=== PATIENT | female | born 1950 | race Caucasian/White ===

== ENCOUNTER 2017-06-18 08:23 | Emergency (ER) | payer OTHER ==
[~2017-06-18] VITALS: Ht 160 cm; Wt 141.0 kg
[~2017-06-18 08:23] MED LIST: ADVAIR DISK1 INH; ALBUTEROL1 NEB; ALBUTEROL2.5 MG/31 IN; AMOX/K CLAV875 M1 PO; AMOXICILLIN500 MG PO; ASPIRIN LOW DOS81 M2 PO; AVELOX400 MG PO; BL ADULT ASA81 MG PO; BUMETANIDE1 MG PO; CITALOPRAM20 MG PO; COMBIVENT INH; COREG6.25 MG PO; CRESTOR40 MG PO; KLOR-CON 1010 ME1 PO; LASIX 20 MG TAB20 MG PO; LORTAB 5-325 MG1 TAB PO; MAXZIDE-2537.5 MG/TA PO; MEDDOSEPAK PO; MOTRIN800 MG PO; NEBULIZE2 NEB; PRAVACHOL40 MG PO; PREDNISONE1 MG PO; TESSALON PER100 MG PO; ZITHROMAX250 MG PO; ZOLOFT50 MG PO
[2017-06-18] MEDS ORDERED: DELTASONE20 MG PO (08:33)
[2017-06-18 09:09] VITALS: BP 148/77
[2017-06-21] MEDS ORDERED: PREDNISONE50 MG PO (14:29)
== END 2017-06-18 09:09 | disposition home or self-care (01) | DRG 203 ==
LOC: ED 08:23
DX: J98.01 Acute bronchospasm (principal); Z99.81 Dependence on supplemental oxygen; J44.9 Chronic obstructive pulmonary disease, unspecified; I10 Essential (primary) hypertension; E78.5 Hyperlipidemia, unspecified

== ENCOUNTER 2019-03-06 02:53 | Observation (INO) | payer MEDICARE, OTHER ==
[~2019-03-06] VITALS: Ht 160 cm; Wt 149.7 kg
[~2019-03-06 02:53] MED LIST changes: +DELTASONE20 MG PO; +PREDNISONE50 MG PO
--- NOTE | 2019-03-06 02:58 | NUR ---
PT AMBULATORY TO ROOM # 9 FOR BEDSIDE TRIAGE.
[2019-03-06] MEDS ORDERED: BUMETANIDE1 MG PO (03:49)
[2019-03-06] MEDS ORDERED: DUONEB IN (03:50)
[2019-03-06 03:56] LABS: HEMATOCRIT 43.4 % (37.0-47.0); HEMOGLOBIN 14.1 g/dl (12.0-16.0); IMMATURE GRANULOCYTES 0.4 % (0.0-5.0); MEAN CELL VOLUME 99.1 fL CALC (80.0-100.0); MEAN CORPUSCULAR HGB 32.2 pG CALC (26.0-32.0); MEAN CORPUSCULAR HGB CONC 32.5 g/L CALC (32.0-36.0); NEUT# 2.77 thou/uL (2.00-7.15); RED BLOOD COUNT 4.38 mill/uL (4.20-5.60); RED CELL DISTRI WIDTH 11.6 % (11.5-15.5)
[2019-03-06 03:57] LABS: URINE BILIRUBIN - DIPSTICK NEGATIVE (NEGATIVE); URINE BLOOD DIPSTICK TRACE-INTACT (NEGATIVE); URINE COLOR YELLOW; URINE GLUCOSE - DIPSTICK NEGATIVE (NEGATIVE); URINE KETONE NEGATIVE (NEGATIVE); URINE LEUK ESTERASE NEGATIVE (NEGATIVE); URINE NITRITE - DIPSTICK NEGATIVE (Negative); URINE PROTEIN - DIPSTICK NEGATIVE (NEG-TRACE); URINE SPECIFIC GRAVITY 1.015; URINE UROBILINOGEN - DIPSTICK 0.2 E.U./dL (0.2)
[2019-03-06 04:12] LABS: ALKALINE PHOSPHATASE 98 u/l (38-126); ANION GAP 14 (6-22 (CALC)); BUN 17 mg/dL (8-23); BUN/CREATININE RATIO 28 (12-20 (CALC)); CARBON DIOXIDE 31 mmol/l (22-30); CHLORIDE 100 mmol/l (95-108); CREATININE 0.6 mg/dL (0.5-1.0); GFR > 60 ML/MIN (>=60 (CALC)); GFR FOR AFR.AMER. > 60 ML/MIN (>=60 (CALC)); LIPASE 156 u/l (23-300); POTASSIUM 4.4 mmol/l (3.5-5.1); SGOT/AST 44 u/l (9-36); SODIUM 140 mmol/l (137-146); TOTAL PROTEIN 7.4 g/dL (6.3-8.2)
--- NOTE | 2019-03-06 04:18 | NUR ---
NO RELIEF WITH TORADOL.
[2019-03-06 04:24] LABS: ALBUMIN 4.6 g/dL (3.2-5.0); BILIRUBIN, TOTAL 0.5 mg/dL (0.0-1.4); MYOGLOBIN 30 ng/mL (0 - 62)
--- NOTE | 2019-03-06 05:00 | NUR ---
RESTING QUIETLY AWAITING ROOM ASSIGNMENT.
--- NOTE | 2019-03-06 05:40 | NUR ---
Admission Note Report Given to: ERICKA RAMIREZ Transported by: Wheelchair X Stretcher Transported with: X Nurse Transporter X Patent IV X O2 X Non Categorical Preschool Teacher
--- NOTE | 2019-03-06 05:50 | NUR ---
PT. ARRIVED TO THE FLOOR VIA STRETCHER ACCOMPANIED BY ER NURSE. ADMISSION ASSESSMENT COMPLETED. IV SITE PATENT AND SL TO RAC. TELEMETRY IN PLACE. EDCUATED GUM ROLLING MACHINE OPERATOR LIGHT, ROOM, AND POC; PT. VERBALIZES UNDERSTANDING. PT. DECLINES SOCKS AND/OR CAT HOSE TO BE PLACED. O2 INFUSING PER NC @2LITERS/MIN PER NC. PT. DOES HAVE EXERTIONAL SOB NOTED. SPO2 96% AT THIS TIME. PT. REPORTS PAIN TO LEFT SHOULDER RADIATES DOWN LEFT ARM 3/10 NOW IT IS DOWN POST MORPHINE ADMINISTRATION IN ER. THIS IS NO CHANGE FROM INITIAL COMPLAINTS. DENIES CP. INSTRUCTED TO CALL FOR ANY NEEDS. CALL LIGHT IS IN REACH. WILL CONTINUE TO MONITOR.
[2019-03-06 05:53] VITALS: BP 155/90
--- NOTE | 2019-03-06 07:21 | NUR ---
REPORT RECEIVED FROM ERICKA RAMIREZ. P0T SITTING UPRIGHT IN BED. O2 @ 2L VIA NC. PT REPORTS RELIEF OF PAIN SINCE MEDICATION ADMINISTERED IN ED. REPORTING OF CONCERNS ENCOURAGED. PLAN OF CARE DISCUSSED. CALL LIGHT REVIEWED AND IN REACH. PT STATES UNDERSTANDING.
[2019-03-06 07:50] VITALS: BP 171/90
--- NOTE | 2019-03-06 13:32 | NUR ---
DR. COATES IN TO SEE PT. PLAN OF CARE UPDATED.
[2019-03-06 16:36] VITALS: BP 113/64
--- NOTE | 2019-03-06 16:56 | NUR ---
K-PAD PROVIDED FOR PAIN TO LEFT SHOULDER PER DR. COATES.
--- NOTE | 2019-03-06 19:57 | NUR ---
PT. SITTING UP IN BED AND ASSESSMENT COMPLETED. IV SITE PATENT AND SL, MEDICATED WITH ORDERED PRN MORPHINE AND FLUSHED WITH NS FOR C/O LEFT SHOULDER PAIN 07/17. PT. REPORTS TRAMADOL DID NOT LOWER PAIN THAT WAS GIVEN AT 1800. KPAD IN PLACE WELL TO LEFT SHOULDER. UPDATED ON POC. ENCOURAGED TO CALL FOR ANY NEEDS. CALL LIGHT IS IN REACH. WILL CONTINUE TO MONITOR.
[2019-03-06 20:30] VITALS: BP 131/71
--- NOTE | 2019-03-06 20:37 | NUR ---
SCHED MEDICATIONS GIVEN AND KPAD REMOVED FROM LEFT SHOULDER PER PT'S REQUEST. INSTRUCTED TO CALL FOR ANY NEEDS. CALL LIGHT IS IN REACH.
--- NOTE | 2019-03-06 22:15 | NUR ---
PT. RESTING IN BED ON RIGHT SIDE WITH EYES CLOSED. CPAP IN PLACE. NO DISTRESS NOTED; WILL CONTINUE TO MONITOR. CALL LIGHT IS IN REACH.
[2019-03-06 23:11] VITALS: BP 109/62
--- NOTE | 2019-03-06 23:11 | NUR ---
PT. REPORTS SHE IS FEELING A LITTLE DIZZY, THIS SEMICONDUCTOR TECHNICIAN AMBULATED WITH PT FOR STBY ASST. TO THE BATHROOM AND PT. VOIDED 200MLS OF DARK CLEAR URINE. VSS. NO DISTRESS NOTED. CPAP REAPPLIED. CALL LIGHT IS IN REACH.
--- NOTE | 2019-03-07 00:06 | NUR ---
PT. C/O LEFT SHOULDER PAIN 03/17, MEDICATED WITH ORDERED PRN MORPHINE PER ORDER. OFFERED PRN ULTRAM OR MORPHINE AND PT. REQUESTED MORPHINE AND REPORTS ULTRAM IS NOT STRONG ENOUGH. ADVISED PT. TO SPEAK WITH MD UP[facility]OUNDS TOMORROW TO DISCUSS DIFFERENT ORAL PAIN MEDICATION OPTIONS. VERBALIZES UNDERSTANDING. APPLIED K-PAD BACK TO LEFT SHOULDER. ENCOURAGED TO CALL FOR ANY NEEDS. CALL LIGHT IS IN REACH. WILL CONTINUE TO MONITOR.
--- NOTE | 2019-03-07 02:52 | NUR ---
PT. RESTING IN BED WITH NO DISTRESS NOTED. DENIES NEEDS. CALL LIGHT IS IN REACH.
--- NOTE | 2019-03-07 04:44 | NUR ---
PT. AWAKENED FOR AM VS. VSS. NO DISTRESS NOTED. REPORTS PAIN TO LEFT SHOULDER 5/10, MEDICATED WITH ORDERED TRAMADOL; WILL REASSESS. DAILY WT OBTAINED. DENIES FURTHER NEEDS. CALL LIGHT IS IN REACH.
[2019-03-07 04:45] VITALS: BP 115/56
[2019-03-07 05:09] LABS: HEMATOCRIT 40.7 % (37.0-47.0); HEMOGLOBIN 13.1 g/dl (12.0-16.0); IMMATURE GRANULOCYTES 0.2 % (0.0-5.0); MEAN CELL VOLUME 101.5 fL CALC (80.0-100.0); MEAN CORPUSCULAR HGB 32.7 pG CALC (26.0-32.0); MEAN CORPUSCULAR HGB CONC 32.2 g/L CALC (32.0-36.0); NEUT# 2.32 thou/uL (2.00-7.15); RED BLOOD COUNT 4.01 mill/uL (4.20-5.60); RED CELL DISTRI WIDTH 11.7 % (11.5-15.5)
[2019-03-07 05:38] LABS: ALBUMIN 3.9 g/dL (3.2-5.0); ALKALINE PHOSPHATASE 72 u/l (38-126); ANION GAP 13 (6-22 (CALC)); BILIRUBIN, TOTAL 0.5 mg/dL (0.0-1.4); BUN 17 mg/dL (8-23); BUN/CREATININE RATIO 28 (12-20 (CALC)); CARBON DIOXIDE 32 mmol/l (22-30); CHLORIDE 97 mmol/l (95-108); CREATININE 0.6 mg/dL (0.5-1.0); GFR > 60 ML/MIN (>=60 (CALC)); GFR FOR AFR.AMER. > 60 ML/MIN (>=60 (CALC)); MAGNESIUM 1.8 mg/dL (1.6-2.3); SGOT/AST 38 u/l (9-36); SODIUM 137 mmol/l (137-146); TOTAL PROTEIN 6.3 g/dL (6.3-8.2)
--- NOTE | 2019-03-07 07:00 | NUR ---
PT REPORT EIRCKA RAMIREZ. PT IN RESTROOM. NO S/S OF DISTRESS. CALL LIGHT IN REACH. WILL CONTINUE TO MONITOR.
[2019-03-07 07:56] VITALS: BP 114/51
--- NOTE | 2019-03-07 07:56 | NUR ---
PT A/O X3. SPEECH IS CLEAR. NONPRODUCTIVE COUGH NOTED. RESP LABORED. EXERTIONAL SOB. LUNG SOUNDS DIMINISHED. TELE IN PLACE. O2 @3L ON PT. BOWEL SOUNDS ACTIVE X4. STRONG RADIAL, WEAK PEDAL PULSES. #20 RAC SL. FLUSHED AND PATENT. SITE APPEARS HEALTHY. TRACE OF EDEMA NOTED TO BLE. PT C/O LT SHOULDER ACHING PAIN. 7 OUT OF 10 ON PAIN SCALE. MEDICATED W/ 2 MG MORPHINE. REPOSITIONED FOR COMFORT. PT DENIES ANY FURTHER NEEDS. POC DISCUSSED. SAFETY PRECAUTIONS IN PLACE. CALL LIGHT IN REACH. WILL CONTINUE TO MONITOR.
[2019-03-07 09:21] VITALS: BP 148/72
[2019-03-07 11:05] VITALS: BP 122/68
--- NOTE | 2019-03-07 12:00 | NUR ---
PT WATCHING TELEVISION. NO C/O PAIN OR NEEDS. TELE IN PLACE. CALL LIGHT IN REACH. WILL CONTINUE TO MONITOR.
[2019-03-07] MEDS ORDERED: LORTAB5 PO (14:14)
--- NOTE | 2019-03-07 16:55 | NUR ---
D/C INSTRUCTIONS DISCUSSED W/ PT. PT STATES UNDERSTANDING. IV REMOVED. CATHETER INTACT. PT AWAITING RIDE HOME.
--- NOTE | 2019-03-07 17:11 | NUR ---
Discharge instructions given. Patient verbalizes understanding of same. Discharged in stable condition via Wheelchair to Home with family. All belongings sent with pt.
== END 2019-03-07 17:09 | disposition home or self-care (01) ==
LOC: ED 02:53 → ED-I 04:40 → ED 05:13 → MS2 05:14
PROVIDERS: Emergency Medicine; Internal Medicine Nephrology; ADMIT Internal Medicine; ATTEND Internal Medicine
DX: R07.9 Chest pain, unspecified (principal); M79.622 Pain in left upper arm; E66.9 Obesity, unspecified; Z68.43 Body mass index [BMI] 50.0-59.9, adult; I10 Essential (primary) hypertension; J44.9 Chronic obstructive pulmonary disease, unspecified; F32.9 Major depressive disorder, single episode, unspecified; E78.5 Hyperlipidemia, unspecified; G47.33 Obstructive sleep apnea (adult) (pediatric); Z99.81 Dependence on supplemental oxygen

== ENCOUNTER 2022-07-08 15:31 | Emergency (ER) | payer MEDICARE, OTHER ==
[~2022-07-08 15:31] MED LIST changes: +DUONEB IN; +LORTAB5 PO
== END 2022-07-08 15:35 | disposition left against medical advice (07) ==
LOC: ED 15:31 → LWOBS 15:35
DX: Z53.21 Procedure and treatment not carried out due to patient leaving prior to being seen by health care provider (principal)

== ENCOUNTER 2023-03-08 13:44 | Emergency (ER) | payer MEDICARE, MEDICAID, OTHER ==
[~2023-03-08] VITALS: Ht 160 cm; Wt 144.6 kg
[2023-03-08] VITALS (8 sets, daily range): BP systolic 75–166; BP diastolic 55–95
[2023-03-08] MEDS ORDERED: VOLTAREN1%GEL TOP (14:57)
[2023-03-08] MEDS ORDERED: TRAMADOL HYDROC50 M1 PO (14:57)
[2023-03-08] MEDS ORDERED: NAPROXEN500 MG PO (14:57)
== END 2023-03-08 15:15 | disposition home or self-care (01) ==
LOC: ED 13:44
DX: M17.11 Unilateral primary osteoarthritis, right knee (principal); I10 Essential (primary) hypertension; J44.9 Chronic obstructive pulmonary disease, unspecified; E66.01 Morbid (severe) obesity due to excess calories; E78.00 Pure hypercholesterolemia, unspecified; F32.A Depression, unspecified; Z87.891 Personal history of nicotine dependence